=== PATIENT | female | born 1985 | race Caucasian/White ===

== ENCOUNTER → 2016-10-01 | Outpatient (CLI) | payer BC ==
[~2016-10-01] MED LIST: ACET-1311 PO; ASPI-390 PO; CYCL10TA6 PO; DXY100 PO; LEVO137T3 PO; LEVO150T9 PO
--- NOTE | 2016-10-01 19:12 | DIAGNOSTIC IMAGING REPORT ---
LUMBAR SPINE 5 VIEWS CLINICAL HISTORY: Low back pain. FINDINGS: 5 views of the lumbar spine are correlated with abdominal CT dated 03/06/2016. The skeletal structures are well mineralized. There is no radiographic evidence of fracture or malalignment. Vertebral body height and alignment are maintained. There is mild straightening of the lumbar lordosis. The transverse and spinous processes are intact. There is no evidence of spondylolysis. Mild degenerative disc space narrowing is seen at L5-S1. The remaining intervertebral disc spaces are well-maintained. The visualized bony pelvis appears intact. There is a nonobstructed abdominal bowel gas pattern. There is moderate colonic fecal retention. A phlebolith is noted in the left hemipelvis. IMPRESSION: No acute bony abnormality is seen involving the lumbosacral spine. Electronically signed by: Manoj Roasrio M.D. 10/01/2016 7:11 PM Dictated Date/Time: 10/01/2016 7:09 PM
== END | disposition home or self-care (01) ==
LOC: C.RAD 17:23
PROVIDERS: ATTEND Nurse Practitioner
DX: M54.5 Low back pain (principal)

== ENCOUNTER 2017-01-17 16:17 | Emergency (ER) | payer BC ==
[~2017-01-17] VITALS: Ht 175.3 cm; Wt 67.4 kg
[~2017-01-17 16:17] MED LIST changes: -CYCL10TA6 PO; -LEVO150T9 PO
[2017-01-17 16:22] VITALS: TEMP 36.8; Ht 175.3 cm; Wt 67.4 kg
[2017-01-17] MEDS ORDERED: SODIUM CHLORIDE 0.9% 1000ML 1,000 ML IV STA (16:50)
[2017-01-17] MEDS ORDERED: SODIUM CHLORIDE 0.9% 1000ML 1,000 ML IV ONE (16:50)
--- NOTE | 2017-01-17 16:51 | EMERGENCY ROOM VISIT NOTE ---
History Report prepared by Altagracia: Coni Galan Under the Supervision of: Dr. Tim Blood M.D. First contact with patient: 16:35 Chief Complaint: ABDOMINAL PAIN Stated Complaint: STOMACH PAIN Nursing Triage Summary: Patient ambulatory to triage with a steady and upright gait, states "I was referred here by [facility]. I want an abdomen ultrasound. I am having pain in my upper abdomen. The pain started a couple of days ago. They did a urine specimen and it looks like I have a UTI. I am having some back pain too." History of Present Illness The patient is a 31 year old female who presents to the Emergency Room with complaints of constant upper abdominal pain beginning 2 days ago. The patient states that she was seen at [facility] today and was referred to the ED for her upper abdominal pain. She reports that they did a urine test that showed likely UTI. She complains of abdominal soreness, mild headaches, and mid back soreness. She denies any urinary symptoms, chest pain, shortness of breath, trauma, injury, black stools, bloody stools, and history of abdominal surgery. The patient notes that she has a history of hypothyroidism and UTIs. 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 She notes that she was taken of the Macrobid in September but has not had any UTIs or urinary symptoms since being taken off of it. Source of History: patient Onset: 2 days ago Position: abdomen Timing: constant Associated Symptoms: + headache, + back pain, No chest pain, No SOB, No urinary symptoms Note: She complains of abdominal soreness. She denies any trauma, injury, black stools , bloody stools Review of Systems See HPI for pertinent positives & negatives. A total of 10 systems reviewed and were otherwise negative. Past Medical & Surgical Medical Problems: (1) History of typhoid fever (2) History of typhus (3) Hypothyroidism (4) Relapsing fever Surgical Problems: (1) History of thyroidectomy, total (2) History of tonsillectomy Old medical records were reviewed. Nurse's notes were reviewed and I agree with. Family History Gallbladder disease Hypertension Hypothyroidism Social History Smoking Status: Never Smoker Alcohol Use: occasionally Drug Use: none Marital Status: in relationship Housing Status: lives alone Occupation Status: employed Current/Historical Medications Scheduled Levothyroxine Sodium (Levothyroxine Sodium), 137 MCG PO 3XWK Levothyroxine Sodium (Levothyroxine Sodium), 150 MCG PO 4XWK Scheduled PRN Acetaminophen (Tylenol), 650 MG PO DIRECTED PRN for Pain or Fever Cyclobenzaprine Hcl (Flexeril), 10 MG PO TID PRN for Muscle Spasms Allergies Coded Allergies: Ciprofloxacin (Verified Allergy, Intermediate, GI SYMPTOMS, 01/17/17) Penicillins (Verified Allergy, Intermediate, GI SYMPTOMS, 01/17/17) Sulfa Antibiotics (Verified Allergy, Unknown, HAPPENED A CHILD, 01/17/17) Physical Exam Vital Signs Date Time Temp Pulse Resp B/P (MAP) Pulse Ox O2 Delivery O2 Flow Rate FiO2 01/17/17 20:50 78 20 127/76 98 01/17/17 19:23 71 20 109/65 98 Room Air 01/17/17 18:04 59 17 110/58 98 Room Air 01/17/17 16:22 36.8 78 18 108/67 97 Room Air Physical Exam General: Well developed well nourished non ill appearing young female in no acute distress, breathing comfortably on room air. Normal speech HEENT: Normal cephalic atraumatic. Pupils are equal round and reactive to light. Extraocular movements are intact. Oropharynx is pink with moist mucous membranes. No swelling of the mouth lips or tongue. Neck: Supple with a midline trachea. No meningeal signs or stiffness, no JVD or bruits. No Stridor. Chest: Clear to auscultation bilaterally. No wheezes or rhonchi. No increased work of breathing. Heart: regular rate and rhythm. Abdomen: Soft, minimal epigastric tenderness, nondistended without rebound guarding or rigidity. Extremities: No cyanosis clubbing or edema. No calf tenderness or assymetry Spine/Back. Non tender to palpation. No CVA tenderness Skin: Good turgor without rashes. Neurologic exam: Cranial nerves two through 12 are intact. Motor and sensation are intact and symmetrical throughout. Medical Decision & Procedures ER Provider Diagnostic Interpretation: Radiology results as stated below per my review and radiologist interpretation: ULTRASOUND RIGHT UPPER QUADRANT ABDOMEN FINDINGS: Liver: The liver is normal in size and echotexture. There is no intrahepatic biliary ductal dilatation. The main portal vein is patent. Gallbladder: The gallbladder is normal in appearance. No gallstones are identified. There is no gallbladder wall thickening or pericholecystic fluid. A sonographic Simental's sign is reportedly absent. The common bile duct measures up to 0.3 cm in diameter. Pancreas: Visualized portions of the pancreatic head and body are normal in appearance. The splenic vein is patent. Right kidney: Survey images of the right kidney demonstrate normal size and echotexture. There is no hydronephrosis. Ascites: None. IMPRESSION: Unremarkable sonographic assessment of the right upper quadrant. No gallstones are seen. Electronically signed by: Manoj Rosario M.D. 01/17/2017 7:19 PM Dictated Date/Time: 01/17/2017 7:18 PM Laboratory Results 01/17/17 17:23 Red Blood Count 4.31, Mean Corpuscular Volume 90.0, Mean Corpuscular Hemoglobin 30.2, Mean Corpuscular Hemoglobin Concent 33.5, Mean Platelet Volume 9.8, Neutrophils (%) (Auto) 58.5, Lymphocytes (%) (Auto) 30.4, Monocytes (%) (Auto) 7.4, Eosinophils (%) (Auto) 3.0, Basophils (%) (Auto) 0.6, Neutrophils # (Auto) 4.75, Lymphocytes # (Auto) 2.47, Monocytes # (Auto) 0.60, Eosinophils # (Auto) 0.24, Basophils # (Auto) 0.05 01/17/17 17:23 Test 01/17/17 17:23 01/17/17 19:55 White Blood Count 8.12 K/uL (4.8-10.8) Red Blood Count 4.31 M/uL (4.2-5.4) Hemoglobin 13.0 g/dL (12.0-16.0) Hematocrit 38.8 % (37-47) Mean Corpuscular Volume 90.0 fL (80-100) Mean Corpuscular Hemoglobin 30.2 pg (25-34) Mean Corpuscular Hemoglobin Concent 33.5 g/dl (32-36) Platelet Count 266 K/uL (130-400) Mean Platelet Volume 9.8 fL (7.4-10.4) Neutrophils (%) (Auto) 58.5 % Lymphocytes (%) (Auto) 30.4 % Monocytes (%) (Auto) 7.4 % Eosinophils (%) (Auto) 3.0 % Basophils (%) (Auto) 0.6 % Neutrophils # (Auto) 4.75 K/uL (1.4-6.5) Lymphocytes # (Auto) 2.47 K/uL (1.2-3.4) Monocytes # (Auto) 0.60 K/uL (0.11-0.59) Eosinophils # (Auto) 0.24 K/uL (0-0.5) Basophils # (Auto) 0.05 K/uL (0-0.2) RDW Standard Deviation 43.4 fL (36.4-46.3) RDW Coefficient of Variation 13.1 % (11.5-14.5) Immature Granulocyte % (Auto) 0.1 % Immature Granulocyte # (Auto) 0.01 K/uL (0.00-0.02) Anion Gap 10.0 mmol/L (3-11) Est Creatinine Clear Calc Drug Dose 125.8 ml/min Estimated GFR () 136.3 Estimated GFR (Non- 117.6 BUN/Creatinine Ratio 17.0 (10-20) Calcium Level 8.4 mg/dl (8.5-10.1) Total Bilirubin 0.4 mg/dl (0.2-1) Direct Bilirubin 0.1 mg/dl (0-0.2) Aspartate Amino Transf (AST/SGOT) 19 U/L (15-37) Alanine Aminotransferase (ALT/SGPT) 27 U/L (12-78) Alkaline Phosphatase 55 U/L (45-117) Total Protein 6.9 gm/dl (6.4-8.2) Albumin 3.8 gm/dl (3.4-5.0) Lipase 196 U/L (73-393) Human Chorionic Gonadotropin, Qual NEG (NEG) Urine Color YELLOW Urine Appearance CLEAR (CLEAR) Urine pH 6.5 (4.5-7.5) Urine Specific Anderson 1.015 (1.000-1.030) Urine Protein NEG (NEG) Urine Glucose (UA) NEG (NEG) Urine Ketones 1+ (NEG) Urine Occult Blood NEG (NEG) Urine Nitrite NEG (NEG) Urine Bilirubin NEG (NEG) Urine Urobilinogen NEG (NEG) Urine Leukocyte Esterase SMALL (NEG) Urine WBC (Auto) 1-5 /hpf (0-5) Urine RBC (Auto) 0-4 /hpf (0-4) Urine Hyaline Casts (Auto) 0 /lpf (0-5) Urine Epithelial Cells (Auto) >30 /lpf (0-5) Urine Bacteria (Auto) NEG (NEG) Laboratory studies as stated above per my review. Medications Administered Medications (Trade) Dose Ordered Sig/Hira Route Start Time Stop Time Status Last Admin Dose Admin Sodium Chloride 1,000 ml @ 999 mls/hr Q1H1M STAT IV 01/17/17 16:50 01/17/17 17:50 DC 01/17/17 16:50 999 MLS/HR Sodium Chloride 1,000 ml @ 200 mls/hr Q5H ONCE IV 01/17/17 16:50 01/17/17 21:07 DC 01/17/17 16:50 200 MLS/HR ED Course 1638: Past medical records reviewed. The patient was evaluated in room B3, and a complete history and physical examination were performed. 1650: Sodium Chloride 1000 ml @ 200 mls/hr IV, Sodium Chloride 1000 ml @ 999 mls /hr IV. 1829: I reevaluated and updated the patient. 2033: I updated the patient and her fiance. She is feeling better. 2047: Upon reevaluation, the patient is doing well. I discussed the results and treatment plan with the patient. She verbalized agreement of the treatment plan. The patient was discharged home. Medical Decision Differential diagnosis includes gallbladder disease, peptic ulcer disease, UTI, electrolyte or metabolic abnormality. This patient comes in as described above. She was placed in room B3. She is here for treatment and evaluation of epigastric abdominal pain. She was seen at [facility] and sent over here for ultrasound of her gallbladder. She was told she could've urinary tract infection but has no urinary symptoms. She looks well on exam is afebrile abdomen and is minimally tender in epigastric and upper abdomen. She has no lower abdominal tenderness or peritonitis. No masses. IV access established was hydrated IV normal saline. Blood work and urine was ordered. I did order ultrasound of her gallbladder as well. She was reassessed frequently. Urinalysis does not suggest a UTI with a culture pending. She has no white count or fever to suggest infection. She has no acute electrolyte or metabolic abnormalities. She has nothing to suggest liver bolus pancreas disease. Gallbladder ultrasound was unremarkable. This daily more of a gastritis or peptic ulcer disease she can use [id number] Zantac 150 milligrams twice a day and/or Maalox. At this point , she has nothing to suggest appendicitis or surgical process she has no fever or significant tenderness. I do not think she needs a CAT scan at this point and do not want to give her unnecessary radiation, she agrees and I encouraged her have close follow-up with her doctor this week for recheck in the next couple days return to ER if : increasing pain, worsening of symptoms, fever chills, any new problems or concerns. She was happy with plan and discharged to home. Medication Reconciliation: I attest that I have personally reviewed the patient' s current medication list. Blood pressure Screening: Patient was found to have normal blood pressure on screening and does not require follow-up. Impression Primary Impression: Epigastric abdominal pain Additional Impression: Gastritis Scribe Attestation The scribe's documentation has been prepared under my direction and personally reviewed by me in its entirety. I confirm that the note above accurately reflects all work, treatment, procedures, and medical decision making performed by me. Departure Information Dispostion Home / Self-Care Referrals Carmita Yao M.D. (PCP) Forms HOME CARE DOCUMENTATION FORM, IMPORTANT VISIT INFORMATION Patient Instructions My [facility] Additional Instructions Rest Drink plenty of fluids Mild diet Return if: Increasing pain, fever or chills, worsening of symptoms, any new problems or concerns. Follow-up with your doctor for recheck this week Problem Qualifiers
[2017-01-17] MEDS ORDERED: LEVO137T3 PO (17:34)
[2017-01-17] MEDS ORDERED: LEVO150T9 PO (17:34)
[2017-01-17] MEDS ORDERED: CYCL10TA6 PO (17:34)
[2017-01-17 17:54] LABS: CALCIUM 8.4 mg/dl (8.5-10.1); CREATININE 0.69 mg/dl (0.60-1.20); POTASSIUM 3.6 mmol/L (3.5-5.1)
[2017-01-17 17:55] LABS: BASO % 0.6 %; BASO ABS # 0.05 K/uL (0-0.2); COMPLETE YES; HEMATOCRIT 38.8 % (37-47); IG% 0.1 %; LYMPH % 30.4 %; LYMPH ABS # 2.47 K/uL (1.2-3.4); MEAN CORPUSCULAR HEMOGLOBIN 30.2 pg (25-34); MEAN CORPUSCULAR HGB CONC 33.5 g/dl (32-36); MEAN PLATELET VOLUME 9.8 fL (7.4-10.4); MONO % 7.4 %; NEUT % 58.5 %; PLATELET COUNT 266 K/uL (130-400); RED BLOOD COUNT 4.31 M/uL (4.2-5.4); WHITE BLOOD COUNT 8.12 K/uL (4.8-10.8)
[2017-01-17 18:21] LABS: PREG INTERNAL NEGATIVE QC NEG CLEAR BACKGROUND; PREG INTERNAL POSITIVE QC POS CONTROL LINE
--- NOTE | 2017-01-17 19:20 | DIAGNOSTIC IMAGING REPORT ---
ULTRASOUND RIGHT UPPER QUADRANT ABDOMEN CLINICAL HISTORY: Right upper quadrant abdominal pain. COMPARISON STUDY: Abdominal CT dated 03/06/2016. TECHNIQUE: Real-time, grayscale, and color flow sonography of the right upper quadrant of the abdomen was performed. Images are reviewed in the transverse and longitudinal planes. FINDINGS: Liver: The liver is normal in size and echotexture. There is no intrahepatic biliary ductal dilatation. The main portal vein is patent. Gallbladder: The gallbladder is normal in appearance. No gallstones are identified. There is no gallbladder wall thickening or pericholecystic fluid. A sonographic Simental's sign is reportedly absent. The common bile duct measures up to 0.3 cm in diameter. Pancreas: Visualized portions of the pancreatic head and body are normal in appearance. The splenic vein is patent. Right kidney: Survey images of the right kidney demonstrate normal size and echotexture. There is no hydronephrosis. Ascites: None. IMPRESSION: Unremarkable sonographic assessment of the right upper quadrant. No gallstones are seen. Electronically signed by: Manoj Rosario M.D. 01/17/2017 7:19 PM Dictated Date/Time: 01/17/2017 7:18 PM
[2017-01-17 20:07] LABS: URINE APPEARANCE CLEAR (CLEAR); URINE BILIRUBIN NEG (NEG); URINE COLOR YELLOW; URINE EPITHELIAL CELL AUTO >30 /lpf (0-5); URINE NITRITE NEG (NEG); URINE PH 6.5 (4.5-7.5); URINE SPECIFIC GRAVITY 1.015 (1.000-1.030); UROBILINOGEN NEG (NEG)
[2017-01-17 20:10] LABS: MANUAL MICROSCOPIC REQUIRED? NO; REVIEW REQ? NO
[2017-01-17 20:50] VITALS: BP 127/76; PULSE 78; O2SAT 98
== END 2017-01-17 20:51 | disposition home or self-care (01) ==
LOC: C.EDB 16:18
DX: R10.13 Epigastric pain (principal); K29.70 Gastritis, unspecified, without bleeding; E03.9 Hypothyroidism, unspecified; Z87.440 Personal history of urinary (tract) infections; Z82.49 Family history of ischemic heart disease and other diseases of the circulatory system; Z83.49 Family history of other endocrine, nutritional and metabolic diseases